=== PATIENT | male | born 1945 | race Caucasian/White ===

== ENCOUNTER → 2016-07-22 | Outpatient (CLI) | payer OTHER ==
[~2016-07-22] MED LIST: DEPO METHYLPREDNISOLONE 40 MG/ML SDV ONE; IOPAMIDOL (ISOVUE 370) 100 ML BTL IV ONE; LIDOCAINE 1% 30 ML SDV ONE; NA BICARBONATE 50 MEQ/50 ML VIAL ONE; ROPIVACAINE HCL 150 MG/30 ML INJ ONE
== END ==
LOC: FIMAGING 12:55
PROVIDERS: ATTEND Internal Medicine
PROC: 3E0U33Z Introduction of Anti-inflammatory into Joints, Percutaneous Approach (ICD-10-PCS; principal; 2016-07-22)
PROC: 3E0U3BZ Introduction of Anesthetic Agent into Joints, Percutaneous Approach (ICD-10-PCS; principal; 2016-07-22)
DX: M16.11 Unilateral primary osteoarthritis, right hip (principal)
CPT/HCPCS: 20610; J1020; J2795; Q9967

== ENCOUNTER 2016-10-26 09:30 | Inpatient (IN) | payer OTHER ==
--- NOTE | 2016-10-24 10:24 | GHP ---
[f rep st] PREOP HISTORY AND PHYSICAL DATE OF ADMISSION: 10/26/2016 ADMISSION DIAGNOSIS: Severe right hip degenerative arthritis. HISTORY OF PRESENT ILLNESS: The patient is a 71-year-old male who will be admitted for a right total hip arthroplasty with Dr. Riddle at the [facility] on October 26, 2016. The patient has had progressive right hip pain over the past year or 2. He is having daily pain and nighttime pain. Activity makes it worse. He has had to modify his physical activity because of the debilitating pain. He has had to resort to using hydrocodone to help him sleep at night. He will also use ibuprofen during the day. Because of the progressive pain, advanced arthritis, and recalcitrant response to conservative therapies, the patient has elected to proceed with a right total hip. He is about 5-1/2 years status post left total hip arthroplasty with a good result. PAST MEDICAL HISTORY: Pertinent for hypertension and sleep apnea. No history of PE, DVT, RI, CAD, hepatitis, or MRSA infection. CURRENT MEDICATIONS: Lisinopril 10 mg and hydrochlorothiazide 25 mg. MEDICATION ALLERGIES: He has no known drug allergies. He does report seasonal allergies. SOCIAL HISTORY: The patient is self employed as a construction specialist. He is a nonsmoker with occasional alcohol intake. He is . FAMILY HISTORY: Pertinent for cancer, hypertension, diabetes and coronary artery disease. PHYSICAL EXAMINATION: GENERAL: He is a healthy-appearing, 71-year-old male. VITALS: Height 5 feet 7 inches tall, weight 175 pounds. BMI 27.4. Blood pressure 121/71. HEENT: Head is normocephalic, atraumatic. Eyes are PERRLA. Conjunctivae and sclerae are clear. Mouth: He has good oral hygiene without any loose teeth. LUNGS: Clear. HEART: Regular rate and rhythm without murmurs, gallops, or rubs. EXTREMITIES: Pertinent findings are limited to the patient's right hip. He has full hip extension, 100 degrees of flexion, 0 degrees of internal rotation, 20 degrees of external rotation, and 30 degrees of abduction. DIAGNOSTIC IMAGING: Recent x-rays taken of the patient's right hip shows severe [id number] degenerative arthritis of the weightbearing aspect of the right hip. He has a large CAM lesion with peripheral osteophyte formation and increased subchondral sclerosis. IMPRESSION ON ADMISSION: 1. Severe right hip degenerative arthritis. 2. Sleep apnea. 3. Treated hypertension. PLAN: The plan will be for the patient to undergo a right total hip arthroplasty with Dr. Riddle at the [facility]. The surgery has been described to the patient including the risks, benefits, and expectations. He understands the risk of infection, sciatic nerve injury, dislocation, and leg-length inequality. All his questions have been answered. He consents to surgery here in the office today. Copy requested to: Dr. Jacobson, PCP /[id number]/MODL MTDD
[2016-10-26] MEDS ORDERED: ceFAZolin 1 GM/5 ML SYR ONE (11:36)
[2016-10-26] MEDS ORDERED: PROPOFOL/EMULSION 500 MG/50 ML BOTTLE IV ONE (12:57)
--- NOTE | 2016-10-26 13:03 | PDHPUP ---
History & Physical Update H&P update statement: This history and physical update is based on an assessment of the patient which was completed after admission or registration (within 24 hours), but prior to the surgery/procedure. H&P update: H&P reviewed & patient examined, no change in patient's condition since H&P completed
[2016-10-26] MEDS ORDERED: ACETAMINOPHEN 325 MG TAB PO ONE (13:04)
[2016-10-26] MEDS ORDERED: DEXAMETHASONE 4 MG/ML VIAL IVP ONE (13:04)
[2016-10-26] MEDS ORDERED: ceFAZolin 2 GM/DEXTROSE 100 ML IV ONE (13:04)
[2016-10-26] MEDS ORDERED: FAMOTIDINE 20 MG TAB PO ONE (13:04)
[2016-10-26] MEDS ORDERED: LIDOCAINE 1% 2 ML INJ ONE (13:07)
[2016-10-26] MEDS ORDERED: FAMOTIDINE 20 MG TAB ONE (13:08)
[2016-10-26] MEDS ORDERED: DEXAMETHASONE 4 MG/ML VIAL ONE (13:08)
[2016-10-26] MEDS ORDERED: ACETAMINOPHEN 325 MG TAB ONE (13:08)
[2016-10-26] MEDS ORDERED: CEFAZOLIN 2 GM/DEXTROSE/100 ML BAG IV ONE (13:08)
[2016-10-26] MEDS ORDERED: LR 1,000 ML IV ONE (13:15)
[2016-10-26] MEDS ORDERED: LIDOCAINE 1% 2 ML INJ ID PRN (13:15)
[2016-10-26] MEDS ORDERED: MIDAZOLAM 2 MG/2 ML VIAL IVP ONE (13:22)
--- NOTE | 2016-10-26 13:24 | PDANEPAE ---
ANE History of Present Illness R IAIN ANE Past Medical History - Cardiovascular History Hx Hypertension: Yes Hx Arrhythmias: No Hx Chest Pain: No Hx Coronary Artery / Peripheral Vascular Disease: No Hx CHF / Valvular Disease: No Hx Palpitations: No - Pulmonary History Hx COPD: No Hx Asthma/Reactive Airway Disease: No Hx Recent Upper Respiratory Infection: No Hx Oxygen in Use at Home: No Hx Sleep Apnea: Yes Sleep Apnea Screening Result - Last Documented: Positive - Neurologic History Hx Cerebrovascular Accident: No Hx Seizures: No Hx Dementia: No - Endocrine History Hx Diabetes: Yes Endocrine History Comment: elevated HbgA1c and blood glucose with lab tests - Renal History Hx Renal Disorders: Yes Renal History Comment: kidney stone 9 years ago - Liver History Hx Hepatic Disorders: No - Neurological & Psychiatric Hx Hx Neurological and Psychiatric Disorders: No - Cancer History Hx Cancer: No - Congenital Disorder History Hx Congenital Disorders: No - GI History Hx Gastrointestinal Disorders: No - Chronic Pain History Chronic Pain: No (cortisone injection) - Surgical History Prior Surgeries: left hip arthroplasty 2011. rotator cuff left. left wrist surgery ANE Review of Systems - Exercise capacity METS (RN): 4 METS ANE Patient History - Allergies Allergies/Adverse Reactions: No Known Allergies Allergy (Unverified 06/14/11 15:42) - Home Medications Home Medications: Acetaminophen [Tylenol ES 500 mg (*)] 1,000 mg PO Q6 PRN 08/24/16 [Last Taken 23:59] Hydrochlorothiazide [HCTZ (*)] 25 mg PO DAILY 08/24/16 [Last Taken 10/26/16 08: 00] Hydrocodone/Acetaminophen [[place] 5/325 (*)] 1 tab PO Q6H PRN 08/24/16 [Last Taken 10/25/16 23:59] Lisinopril [Zestril 10 mg (*)] 10 mg PO DAILY 08/24/16 [Last Taken 10/26/16 08: 00] Glucosamine Sulfate [Glucosamine Sulfate 500 MG (*)] 500 mg PO DAILY 08/26/16 [ Last Taken 3 Days Ago] Herbals/Supplements -Info Only 1 ea PO DAILY 08/26/16 [Last Taken 3 Days Ago] - Anes Hx Anes Hx: no prior problems - Smoking Hx Smoking Status: Never smoked - Family Anes Hx Family Anes Hx: none Family Hx Anesthesia Complications: none ANE Labs/Vital Signs - Vital Signs Height: 172.72 cm Weight: 81.647 kg ANE Physical Exam - Airway Neck exam: FROM Mallampati Score: Class 1 Mouth exam: normal dental/mouth exam - Pulmonary Pulmonary: no respiratory distress - Cardiovascular Cardiovascular: regular rate and rhythym - ASA Status ASA Status: II ANE Anesthesia Plan Anesthesia Plan: MAC, spinal
[2016-10-26] MEDS ORDERED: MIDAZOLAM 2 MG/2 ML VIAL ONE (13:37)
[2016-10-26] MEDS ORDERED: ROPIVACAINE 0.2% 80 MG, EPINEPHrine 0.2 MG, KETOROLAC TROMETHAMINE 30 MG in BAG 0 ML IU ONE (14:00)
[2016-10-26] MEDS ORDERED: POVIDONE-IODINE 20 ML in SODIUM CL IRRIG SOLUTION 500 ML IRR ONE (14:00)
[2016-10-26] MEDS ORDERED: TRANEXAMIC ACID 1,620 MG in NS 100 ML IV ONE (14:00)
[2016-10-26] MEDS ORDERED: PHENYLEPHRINE HCL 100 MCG/ML SYR ONE (14:12)
[2016-10-26] MEDS ORDERED: HYDROCODONE/APAP 5/325 TAB PO PRN ×2 (14:19→15:38)
[2016-10-26] MEDS ORDERED: OXYCODONE/APAP 5/325 TAB PO PRN ×2 (14:19→15:38)
[2016-10-26] MEDS ORDERED: DEXAMETHASONE 4 MG/ML VIAL IVP PRN ×2 (14:19→15:38)
[2016-10-26] MEDS ORDERED: HYDROmorphONE/DILAUDID 1 MG/ML SYR IVP PRN (14:19)
[2016-10-26] MEDS ORDERED: fentaNYL 100 MCG/2 ML INJ IVP PRN ×2 (14:19→15:38)
[2016-10-26] MEDS ORDERED: MEPERIDINE 25 MG/ML SYR IVP PRN ×2 (14:19→15:38)
[2016-10-26] MEDS ORDERED: NALOXONE HCL 0.4 MG/ML INJ IVP PRN ×2 (14:19→15:38)
[2016-10-26] MEDS ORDERED: ONDANSETRON 4 MG/2 ML VIAL IVP PRN ×3 (14:19→15:38)
[2016-10-26] MEDS ORDERED: ACETAMINOPHEN 500 MG TAB PO PRN ×2 (14:19→15:38)
--- NOTE | 2016-10-26 14:20 | POSTANESTH ---
Post Anesthetic Evaluation Cardiovascular Status: Normal, Stable, Similar to Pre-Op Cond Respiratory Status: Normal, Stable, Similar to Pre-op Cond. Level of Consciousness/Mental Status: Can Participate in Eval, Mildly Sleepy, Arousable Pain Control: Adequate, Prn Tx Ordered Nausea/Vomiting Control: Adequate, Prn Tx Ordered Complications Possibly Related to Anesthesia: None Noted
--- NOTE | 2016-10-26 15:11 | POSTOPPROG ---
Post Op Note Date of Operation: 10/26/16 Surgeon: Parrish Riddle Rubber Down: Jacinto Cronin/Reggie Billingsley Anesthesiologist: Mustapha Garza Post-op Diagnosis: Right hip arthritis Procedure: Right total hip arthroplasty Inf/Abcess present in the surg proc area at time of surgery?: No EBL: [id number]
[2016-10-26] MEDS ORDERED: ONDANSETRON DISINTEGRATING 4 MG TAB PO PRN (15:28)
[2016-10-26] MEDS ORDERED: MAGNESIUM HYDROXIDE 30 ML UDCUP PO PRN (15:28)
[2016-10-26] MEDS ORDERED: traMADol 50 MG TAB PO PRN (15:28)
[2016-10-26] MEDS ORDERED: diphenhydrAMINE 25 MG CAP PO PRN (15:28)
[2016-10-26] MEDS ORDERED: DIPHENOXYLATE/ATROPINE LOMOTIL 1 TAB PO PRN (15:28)
[2016-10-26] MEDS ORDERED: TEMAZEPAM 15 MG CAP PO PRN (15:28)
[2016-10-26] MEDS ORDERED: CYCLOBENZAPRINE 10 MG TAB PO PRN (15:28)
[2016-10-26] MEDS ORDERED: METOCLOPRAMIDE 10 MG/2 ML VIAL IVP PRN (15:28)
[2016-10-26] MEDS ORDERED: PROMETHAZINE HCL 25 MG SUPPR PR PRN (15:28)
[2016-10-26] MEDS ORDERED: PHARMACY PAIN CONSULT 1 EA MISC PRN (15:28)
[2016-10-26] MEDS ORDERED: LACTULOSE 20 GM/30 ML UDCUP PO PRN (15:28)
[2016-10-26] MEDS ORDERED: PROMETHAZINE HCL 25 MG/ML INJ IVP PRN ×2 (15:28→15:38)
[2016-10-26] MEDS ORDERED: BISACODYL 10 MG SUPP PR PRN (15:28)
[2016-10-26] MEDS ORDERED: KETOROLAC 30 MG/1 ML SDV IVP PRN (15:28)
[2016-10-26] MEDS ORDERED: POLYETHYLENE GLYCOL 3350 17 GM PKT PO PRN (15:28)
[2016-10-26] MEDS ORDERED: NS 500 ML IV PRN (15:28)
[2016-10-26] MEDS ORDERED: LR 1,000 ML IV SCH (15:30)
[2016-10-26] MEDS: ACETAMINOPHEN 325 MG TAB PO SCH ×2 (17:32→23:58)
[2016-10-26] MEDS: ASPIRIN 325 MG TAB PO SCH (21:43)
[2016-10-26] MEDS: SENNOSIDES/DOCUSATE SODIUM TAB PO SCH (21:44)
[2016-10-26] MEDS: oxyCODONE IR 5 MG TAB PO PRN (21:44)
[2016-10-26] MEDS: FAMOTIDINE 20 MG TAB PO SCH (21:44)
[2016-10-26] MEDS: TRANEXAMIC ACID 650 MG TAB PO SCH (21:45)
[2016-10-26] MEDS: ceFAZolin 2 GM/DEXTROSE 100 ML IV SCH (21:45)
--- NOTE | 2016-10-27 03:02 | GOP ---
[f rep st] OPERATIVE REPORT DATE OF OPERATION: 10/26/2016 SURGEON: Parrish Riddle MD [place] ORDINARY: Jacinto Cronin and Reggie Billingsley ANESTHESIA: A combination of Marcaine, spinal, and IV sedation by Dr. Shakir Garza. PREOPERATIVE DIAGNOSIS: Right hip arthritis. POSTOPERATIVE DIAGNOSIS: Right hip arthritis. PROCEDURE PERFORMED: Right total hip arthroplasty, ceramic femoral head on highly cross-linked poly ethylene cup liner. FINDINGS: ESTIMATED BLOOD LOSS: The estimated blood loss was 400 mL. The sponge and needle count were correct on 2 occasions. I used a [place] Tritanium hemispherical solid-backed acetabular shell with an outside diameter of 5 4 mm. The liner was a Krysten X3 10-degree lipped highly cross-linked liner with an inside diameter of 36 mm. The femoral component was a press-fit [place] standard offset Secur-Fit Max stem in a si ze 9. The femoral head was a [place] Biolox Delta ceramic head with a 0 neck length and a 36 mm out side diameter. Jacinto Cronin and Reggie Billingsley acted as a surgical first assistants. Their assistance was a medic al necessity. DESCRIPTION OF PROCEDURE: The patient was given 2 g of IV Ancef preoperatively within 60 minutes of surgery. He also received IV tranexamic acid at a dose of 20 mg/kg. [facility] and given spinal anesthesia with Marcaine by Dr. Garza. He was then placed supine a nd given IV sedation. A Wilhelm catheter was not used. He wore a DEANDRE stocking and SCD on the nonoper ative leg. He was rolled to the left lateral decubitus position. The position was secured with the pegboard table attachment. An axillary roll was used, and all pressure points were carefully padde d. I was careful to lock his pelvis in a rigid vertical position. His perineum was isolated with p last adhesive drapes. The right lower extremity was prepped with ChloraPrep. It was draped free using sterile sheets, stockinette, and Ioban plastic drape. The World Health Organization time-out was performed to verify the correct surgical site and side an d the correct patient identity. The [place] time-out was also performed. I made a 5-inch straight oblique posterolateral hip skin incision. Subcutaneous tissues were sharpl y divided and hemostasis was obtained using electrocautery. The fascia surinder was identified and spli t along the axis of its fibers. I then curved posteriorly and proximally and split the fascia of gl uteus isaias and bluntly split the muscle fibers in line with their orientation. This is a modifie d direct superior approach. The [place] self-retaining retractor was inserted. His sciatic nerve was located, partially exposed, and protected throughout the procedure. The external rotators and t he posterior hip capsule were divided as separate layers at the base of the femoral neck, tagged, an d reflected posteriorly. A smooth 8-inch Steinmann pin was inserted vertically into the ilium, supe rior to the acetabulum. An 8-inch drill bit was inserted vertically into the greater trochanter and parallel to the first pin. The distance between the 2 was measured for leg length reference. The femoral head was dislocated posteriorly. Severe degenerative changes were present on the femoral he ad. The femoral neck was osteotomized at the appropriate level and inclination. I was careful to preserve all the posterior capsule and most of the anterior capsule. The remnant o f labrum was excised. I prepared the femur first. This allowed me to radiocommunications technician the amount of natural femoral neck anteversion . This, in turn, allowed me to later determine the correct amount of cup anteversion. He had appro ximately 10 degrees of natural femoral neck anteversion. The canal was opened laterally with a box chisel. I reamed and broached sequentially up to size 9. I used a size 9 broach as a trial stem. I was careful to lateralize adequately. Appropriate retractors were inserted to expose the acetabulum. The acetabulum was reamed sequential ly up to 53 mm. I selected a 54 mm [place] Tritanium solid back hemispherical shell. This was ron ed securely into place in the proper degree of inclination anteversion. I used the transverse aceta bular ligament and other acetabular bony landmarks to help me properly orient the cup. Supplemental screw fixation was not necessary. I inserted a screw-in metal dome hole plug. Some small posterio r inferior osteophytes were removed with a rongeur. I performed a series of trial reductions to determine length and stability. I concluded that the si ze 9 stem with a 0 neck length, a 36 mm head, and a 10 degree lipped liner gave me the proper combin ation of appropriate length and good anterior and posterior stability. The 10 degree lipped [place] X3 highly cross-linked polyethylene liner was inserted and tapped secur yury into place. I chose the [place] Secur-Fit Max stem in a size 9 with standard offset. This was inserted press-fit and was very tight. I did one final trial reduction and confirmed that the 0 nec k length with a 36 mm head was the proper combination. I selected the [place] Biolox Delta ceramic head with an outside diameter of 36 mm and a neck length of 0 mm. The head was tapped securely onto the clean trunnion. The acetabulum was irrigated, cleaned, and the hip was reduced one final time. He had excellent anterior and posterior stability and appropriate length. He was 3 or 4 mm short preoperatively and I was intentionally lengthening him. 40 mL of the joint anesthetic cocktail were injected into the capsule, the deep musculature, and the subcutaneous tissues along the skin edges. The joint was thoroughly irrigated one final time with a dilute Betadine solution. His sciatic nerve was reinspected and looked unharmed. The external rotators and the posterior hip capsule were repaired in separate layers with #2 FiberWi re sutures through drill holes in the greater trochanter. This provided a strong posterior capsular and external rotator repair. The fascia surinder was closed first with several interrupted figure-of-e ight #2 FiberWire sutures followed by a running #2 barbed Ethicon Stratafix PDO suture. The subcuta neous tissues were closed with a running 0 barbed Ethicon Stratafix Monoderm suture. The skin was c losed with a running 3-0 barbed Ethicon Stratafix Monoderm subcuticular suture. The skin edges were reapproximated and sealed with Dermabond glue. The wound was covered with a strip of Telfa and greg rything was held in place with a piece of clear plastic Tegaderm. A long-leg DEANDRE stocking and SCD were applied to the right lower extremity. He wore a stocking and S CD on the opposite leg during the procedure. An abduction pillow was placed between his knees. He was awakened from anesthesia and rolled to the supine position on his [facility]. He was taken to PACU in satisfactory condition. COMPLICATIONS: There were no recognized intraoperative complications. /[id number]/MODL
[2016-10-27 05:34] LABS: HEMATOCRIT 33.1 % (40.0-51.0)
[2016-10-27] MEDS: ACETAMINOPHEN 325 MG TAB PO SCH ×2 (05:59→10:51)
[2016-10-27] MEDS: ceFAZolin 2 GM/DEXTROSE 100 ML IV SCH (05:59)
[2016-10-27] MEDS: TRANEXAMIC ACID 650 MG TAB PO SCH ×2 (05:59→13:34)
[2016-10-27] MEDS: oxyCODONE IR 5 MG TAB PO PRN ×2 (06:07→10:50)
--- NOTE | 2016-10-27 07:50 | SOAPPROG ---
SOAP Progress Note Assessment/Plan: Assessment: Awake and alert. Afebrile. The patient has been up and walking in his room. His dressing is dry. Sciatic nerve intact. H&H were good. Films look good. Plan: Up with physical therapy today. Discharge later today. 10/27/16 07:50 Objective: Vital Signs Temp Pulse Resp BP Pulse Ox 36.8 C 70 16 123/63 H 96 10/27/16 04:00 10/27/16 04:00 10/27/16 04:00 10/27/16 04:00 10/27/16 04:00 Laboratory Results 10/27/16 05:24 10/26/16 10/27/16 10/28/16 05:59 05:59 05:59 Intake Total 700 Output Total 780 Balance -80 ICD10 Worksheet Patient Problems: Problems Problem Status Onset Osteoarthritis of right hip Acute
[2016-10-27] MEDS: SENNOSIDES/DOCUSATE SODIUM TAB PO SCH (08:20)
[2016-10-27] MEDS: ASPIRIN 325 MG TAB PO SCH (08:20)
[2016-10-27] MEDS: FAMOTIDINE 20 MG TAB PO SCH (08:20)
--- NOTE | 2016-10-27 08:23 | GDS ---
[f rep st] DISCHARGE SUMMARY ADMISSION DIAGNOSIS: Right hip degenerative arthritis. DISCHARGE DIAGNOSIS: Right hip degenerative arthritis. OPERATION PERFORMED: October 26, 2016: Right total hip arthroplasty. POSTOPERATIVE COMPLICATIONS: None. CONDITION ON DISCHARGE: Improved. DESCRIPTION OF HOSPITAL COURSE: The patient was admitted to the hospital on the morning of surgery. His admission CBC was normal. The same day, under a combination of Marcaine, spinal, and IV sedat ion, he underwent a right total hip arthroplasty. Postoperatively, he was treated with multimodal D VT prophylaxis, including aspirin. On the first postoperative day, his hemoglobin and hematocrit we re 12.2 and 33.1. He was seen by Physical Therapy, and made good progress with ambulation and stair s. By the time of discharge, he was afebrile and was independent in walking. DISPOSITION: The patient discharged to his home. He will go to outpatient physical therapy. I jayjay l see him back in the office on November 17, 2016. Use the abduction pillow in bed for 3 weeks. DEANDRE frye ockings for 1 week. Aspirin 325 mg p.o. daily for 21 days. He has prescriptions for oxycodone and tramadol for pain control. If there are any problems, he is to call me at the office. /[id number]/MODL
[2016-10-27] MEDS: LISINOPRIL 10 MG TAB PO SCH ×2 (08:47→13:36)
[2016-10-27] MEDS: HYDROCHLOROTHIAZIDE 25 MG TAB PO SCH ×2 (08:47→13:36)
[2016-10-27] MEDS ORDERED: FERROUS SULFATE 140 MG TAB.ER PO SCH (09:00)
[2016-10-27 16:07] VITALS: BP 122/64; PULSE 78; RESP 16; TEMP 98.3; O2SAT 96
--- NOTE | 2016-10-27 17:25 | PDIAF ---
- Diagnosis Diagnosis: [facility] hip OA Code Status: Full Code - Medication Management Discharge Medications: Medications to Continue on Transfer Hydrochlorothiazide [HCTZ (*)] 25 mg PO DAILY 08/24/16 [Last Taken 10/26/16 08: 00] Lisinopril [Zestril 10 mg (*)] 10 mg PO DAILY 08/24/16 [Last Taken 10/26/16 08: 00] Glucosamine Sulfate [Glucosamine Sulfate 500 MG (*)] 500 mg PO DAILY 08/26/16 [ Last Taken 3 Days Ago] Herbals/Supplements -Info Only 1 ea PO DAILY 08/26/16 [Last Taken 3 Days Ago] Acetaminophen [Tylenol 325mg (*)] 650 mg PO Q6HRS #0 tab 10/27/16 [Last Taken Unknown] Aspirin [Aspirin 325 mg (*)] 325 mg PO DAILY #21 tab 10/27/16 [Last Taken Unknown] Ferrous Sulfate [Slow Fe 140 MG (*)] 140 mg PO DAILY #30 tab.er 10/27/16 [Last Taken Unknown] Ondansetron Odt [Zofran Odt 4 mg (*)] 4 mg PO Q4HRS PRN #0 tab 10/27/16 [Last Taken Unknown] oxyCODONE IR [Oxycodone Ir (*)] 5 - 10 mg PO Q3HRS PRN #0 tab 10/27/16 [Last Taken Unknown] traMADol [Ultram 50 mg (*)] 50 mg PO Q6HRS PRN #0 tab 10/27/16 [Last Taken Unknown] Discharge Medications: Refer to the Discharge Home Medication list for PRN reason. - Orders Services needed: Home Care, Registered Nurse (Remove Wilhelm Catheter on Monday, October 31, 2016) Home Care Face to Face: I certify that this patient was under my care and that I had the required [id number] encounter meeting the encounter requirements on the discharge day. My findings support the fact that the patient is homebound as defined in CMS Chapter 7 Medicare Benefits Manual 30.1.1, The condition of the patient is such that there exists a normal inability to leave home and consequently, leaving home would require a considerable and taxing effort. Diet Recommendation: no restrictions on diet Diet Texture: Regular Texture Diet - Follow Up Care Current Providers and Referrals: Reggie Garcia MD [Primary Care Provider] - Parrish Riddle MD [Medical Doctor] - 11/17/16
== END 2016-10-27 18:12 | disposition home health service (06) | DRG 470 ==
LOC: F3N 12:37
PROVIDERS: ADMIT Orthopaedic Surgery; ATTEND Orthopaedic Surgery
PROC: 0SR904Z Replacement of Right Hip Joint with Ceramic on Polyethylene Synthetic Substitute, Open Approach (ICD-10-PCS; principal; 2016-10-26 15:00)
DX: M16.11 Unilateral primary osteoarthritis, right hip (principal); I10 Essential (primary) hypertension; G47.30 Sleep apnea, unspecified
CPT/HCPCS: 97116-GP; 97161-GP; 97165-GO; G8978-GP-CJ; G8979-GP-CI; G8987-GO-CI; G8988-GO-CI; G8989-GO-CI; J0171; J0690; J1100; J1885; J2250; J2370; J2704; J2795

== ENCOUNTER 2016-10-31 17:22 | Emergency (ER) | payer OTHER ==
[2016-10-31 17:31] VITALS: TEMP 98.8
[2016-10-31] MEDS ORDERED: LIDOCAINE 2% JELLY 20 ML (UROJECT) ONE (18:28)
--- NOTE | 2016-10-31 18:35 | EDPHY ---
H & P Stated Complaint: Wilhelm removed this morning;can't urinate;plans on appt @ [place] [facility] Time Seen by Provider: 10/31/16 18:18 HPI/ROS: CHIEF COMPLAINT: Urinary retention HISTORY OF PRESENT ILLNESS: The patient is a 71-year-old man who comes to the emergency department complaining of urinary retention. He had his right hip replaced 1 week ago. He had trouble with urinary retention postoperatively. He had a spinal block for the procedure. He had a Wilhelm catheter placed that drained 1000 cc of urine. He does have a history of BPH. He had a catheter in place for a week and had a removed this morning. He has not been able to urinate since that time. He denies any pain or fullness. No flank pain. No fevers. His doctor told him to come here and have the Wilhelm replaced. REVIEW OF SYSTEMS: Constitutional: denies: chills, fever, recent illness, recent injury EENTM: denies: blurred vision, double vision, nose congestion Respiratory: denies: cough, shortness of breath Cardiac: denies: chest pain, irregular heart rate, lightheadedness, palpitations Gastrointestinal/Abdominal: denies: abdominal pain, diarrhea, nausea, vomiting, blood streaked stools Genitourinary: See HPI Musculoskeletal: denies: joint pain, muscle pain Skin: denies: lesions, rash, jaundice, bruising Neurological: denies: headache, numbness, paresthesia, tingling, dizziness, weakness Hematologic/Lymphatic: denies: blood clots, easy bleeding, easy bruising Immunologic/allergic: denies: HIV/AIDS, transplant EXAM: GENERAL: Well-appearing, well-nourished and in no acute distress. HEAD: Atraumatic, normocephalic. EYES: Pupils equal round and reactive to light, extraocular movements intact, sclera anicteric, conjunctiva are normal. ENT: TMs normal, nares patent, oropharynx clear without exudates. Moist mucous membranes. NECK: Normal range of motion, supple without lymphadenopathy or JVD. LUNGS: Breath sounds clear to auscultation bilaterally and equal. No wheezes rales or rhonchi. HEART: Regular rate and rhythm without murmurs, rubs or gallops. ABDOMEN: Soft, nontender, normoactive bowel sounds. No guarding, no rebound. No masses appreciated. BACK: No CVA tenderness, no spinal tenderness, step-offs or deformities EXTREMITIES: Normal range of motion, no pitting or edema. No clubbing or cyanosis. NEUROLOGICAL: Cranial nerves II through XII grossly intact. Normal speech, normal gait. 5/5 strength, normal movement in all extremities, normal sensation PSYCH: Normal mood, normal affect. SKIN: Warm, dry, normal turgor, no visible rashes or lesions. Source: Patient, EMS Exam Limitations: No limitations - Personal History Current Tetanus Diphtheria and Acellular Pertussis (TDAP): Yes Tetanus Vaccine Date: <10 YRS - Medical/Surgical History Hx Asthma: No Hx Chronic Respiratory Disease: No Hx Diabetes: Yes Hx Cardiac Disease: No Hx Renal Disease: No Hx Cirrhosis: No Hx Alcoholism: No Hx HIV/AIDS: No Hx Splenectomy or Spleen Trauma: No Other PMH: sleep apnea-CPAP, HTN, neuropathy. R total hip on 10/26/16 - Family History Significant Family History: No pertinent family hx - Social History Smoking Status: Never smoked Alcohol Use: Sober Drug Use: None Constitutional: Initial Vital Signs Temperature (C) 37.1 C 10/31/16 17:26 Heart Rate 92 10/31/16 17:26 Respiratory Rate 18 10/31/16 17:26 Blood Pressure 152/75 H 10/31/16 17:26 O2 Sat (%) 96 10/31/16 17:26 O2 Delivery Mode Room Air Allergies/Adverse Reactions: No Known Allergies Allergy (Verified 10/31/16 17:25) Home Medications: Medication Instructions Recorded Hydrochlorothiazide [HCTZ (*)] 25 mg PO DAILY 08/24/16 Lisinopril [Zestril 10 mg (*)] 10 mg PO DAILY 08/24/16 Aspirin [Aspirin 325 mg (*)] 325 mg PO DAILY #21 tab 10/27/16 Ferrous Sulfate [Slow Fe 140 MG 140 mg PO DAILY #30 tab.er 10/27/16 (*)] oxyCODONE IR [Oxycodone Ir (*)] 5 - 10 mg PO Q3HRS PRN #0 tab 10/27/16 traMADol [Ultram 50 mg (*)] 50 mg PO Q6HRS PRN #0 tab 10/27/16 Tamsulosin HCl [Flomax 0.4 MG (*)] 0.4 mg PO 10/31/16 Tamsulosin HCl [Flomax] 0.4 mg PO DAILY #10 cap 10/31/16 Medical Decision Making ED Course/Re-evaluation: Patient's Wilhelm catheter was replaced. 7:30 p.m. the patient tolerated Wilhelm catheterization. He had 700 cc out. He tolerated the procedure well. He is asking for refill of his Flomax. He will follow up with his urologist in [place]. Differential Diagnosis: Partial list of the Differential diagnosis considered include but were not limited to; BPH, urinary tract infection and although unlikely based on the history and physical exam, I also considered kidney stone, dehydration. I discussed these differential diagnoses and the plan with the patient as well as the usual and expected course. The patient understands that the diagnosis is provisional and that in medicine we are not always correct and that further workup is often warranted. Usual and customary warnings were given. All of the patient's questions were answered. The patient was instructed to return to the emergency department should the symptoms at all worsen or return, otherwise to followup with the physician as we discussed. Departure - Departure Disposition: Home, Routine, Self-Care Clinical Impression: Urinary retention Condition: Fair Instructions: Urinary Retention in Men (ED) Referrals: Reggie Garcia MD [Primary Care Provider] - As per Instructions Kendrick Gonsalez MD [Medical Doctor] - As per Instructions Prescriptions: Tamsulosin HCl [Flomax] 0.4 mg PO DAILY #10 cap
[2016-10-31 19:35] VITALS: BP 142/75; PULSE 86; RESP 16; O2SAT 94
== END 2016-10-31 20:06 | disposition home or self-care (01) ==
PROC: 0T9B70Z Drainage of Bladder with Drainage Device, Via Natural or Artificial Opening (ICD-10-PCS; principal; 2016-10-31)
DX: R33.9 Retention of urine, unspecified (principal); E11.9 Type 2 diabetes mellitus without complications; I10 Essential (primary) hypertension; Z79.82 Long term (current) use of aspirin